=== PATIENT | male | born 1945 | race Caucasian/White ===

== ENCOUNTER 2025-02-28 07:45 | Inpatient (IN) | payer MEDICARE, BC ==
[~2025-02-28] VITALS: Ht 177.8 cm; Wt 74.4 kg
[2025-02-28 09:32] LABS: INR 1.04 (0.91-1.10)
[2025-02-28] MEDS ORDERED: LIDOCAINE 2%-EPI 1:100,000 30 ML VIAL ONE (11:51)
[2025-02-28] MEDS ORDERED: OXYMETAZOLINE HCL NASAL SPRAY 30 ML BOTTLE NS ONE (11:52)
[2025-02-28] MEDS ORDERED: VANCOMYCIN 1 GM VIAL ONE (11:52)
[2025-02-28] MEDS ORDERED: dexaMETHasone SOD PHOSPHATE 2 ML ONE (11:52)
[2025-02-28] MEDS ORDERED: ONDANSETRON HCL/PF - ER 4 MG/2 ML VIAL IVP PRN (14:30)
[2025-02-28] MEDS ORDERED: ACETAMINOPHEN 325 MG TABLET PO PRN ×2 (14:30→15:00)
[2025-02-28] MEDS ORDERED: Z GUARD REMEDY 4 OZ OINT TP PRN (15:00)
[2025-02-28] MEDS ORDERED: ZOLPIDEM TARTRATE 5 MG TABLET PO PRN (15:00)
[2025-02-28] MEDS ORDERED: MAGNESIUM HYDROXIDE 30 ML UDC PO PRN (15:00)
[2025-02-28] MEDS ORDERED: ONDANSETRON HCL/PF 4 MG/2 ML VIAL IVP PRN ×2 (15:00)
[2025-02-28] MEDS ORDERED: MAG HYDROX/AL HYDROX/SIMETH 30 ML UDC PO PRN (15:00)
[2025-02-28 17:41] LABS: APPEARANCE,URINE CLEAR (CLEAR); BILIRUBIN,URINE NEGATIVE (NEGATIVE); BLOOD, URINE TRACE-INTA Ery/uL (NEGATIVE); COLOR,URINE YELLOW (YELLOW); KETONES,URINE NEGATIVE (NEGATIVE); LEUKOCYTE ESTERASE ,URINE 1+ (NEGATIVE); NITRITE, URINE POSITIVE (NEGATIVE); PROTEIN,URINE TRACE mg/dl (NEGATIVE); UGLUCOSE NEGATIVE (NEGATIVE)
[2025-02-28 18:04] LABS: ADD URINE CULTURE YES; BACTERIA,URINE 2+ /HPF (None Seen); RBC,URINE 0-2 /HPF (0-2); WBC,URINE 21-50 /HPF (0-3)
[2025-02-28 18:05] LABS: MUCUS,URINE Few /LPF (None Seen); SQUAMOUS EPITHELIAL CELL,UR 0-2 /HPF (None Seen)
[2025-02-28] MEDS ORDERED: ALLO300T2 PO (18:27)
[2025-02-28] MEDS ORDERED: TEMA30CA PO (18:27)
[2025-02-28] MEDS ORDERED: PANT40TA49 PO (18:27)
[2025-02-28] MEDS ORDERED: DUTA0.5C37 PO (18:27)
[2025-02-28] MEDS ORDERED: TADA5TAB13 PO (18:27)
[2025-02-28] MEDS ORDERED: ATOR80TA PO (18:27)
[2025-02-28] MEDS ORDERED: AMLO-212 PO (18:27)
[2025-02-28] MEDS ORDERED: SILO8CAP6 PO (18:27)
[2025-02-28] MEDS: HYDROMORPHONE 1 MG/1 ML DISP.SYRIN IV PRN (19:44)
[2025-02-28 20:34] VITALS: BP 128/66; TEMP 99.5; O2SAT 94
[2025-02-28] MEDS: IV NS 0.9% 1,000 ML IV PRN (22:33)
[2025-02-28] MEDS: VANCOMYCIN 1 GM in IV D5W 250ml IV SCH (23:47)
[2025-03-01 06:48] LABS: BASOPHILS % (AUTO) 0.1 % (0.0-2.0); HEMATOCRIT 39 % (39-51); HEMOGLOBIN 12.9 g/dL (13.5-17.5); LYMPHOCYTES # (AUTO) 0.7 K/uL (0.8-4.8); LYMPHOCYTES % (AUTO) 6.1 % (20.0-44.0); MEAN CORPUSCULAR HEMOGLOBIN 30 PG (26.0-33.0); MEAN CORPUSCULAR HGB CONC 34 g/dl (31.0-36.0); MEAN CORPUSCULAR VOLUME 88 fL (80-96); MONOCYTES # (AUTO) 0.4 K/uL (0.1-1.30); MONOCYTES % (AUTO) 3.1 % (2.0-12.0); NEUTROPHILS # (AUTO) 10.3 K/uL (1.8-8.9); NEUTROPHILS % (AUTO) 90.7 % (43.0-81.0); PLATELET COUNT (AUTO) 281 K/uL (150-450); RED BLOOD CELL COUNT(AUTO) 4.39 MIL/uL (4.5-6.0); RED CELL DISTRIBUTION WIDTH 14.5 % (11.5-15.0); WHITE BLOOD COUNT (AUTO) 11.4 K/uL (4.3-11.0)
[2025-03-01 07:00] VITALS: BP 111/64; TEMP 97.3; O2SAT 95
[2025-03-01 07:37] LABS: CALCIUM, SERUM 8.4 mg/dL (8.5-10.1); CARBON DIOXIDE 22 mmol/L (21-32); CHLORIDE 104 mmol/L (98-107); CREATININE 1.1 mg/dL (0.6-1.3); GLUCOSE 210 mg/dL (74-106); MAGNESIUM 1.8 mg/dL (1.8-2.4); PHOSPHORUS 1.8 mg/dL (2.5-4.9); POTASSIUM 3.7 mmol/L (3.5-5.1); SODIUM SERUM 137 mmol/L (136-145); UREA NITROGEN, BLOOD 24 mg/dL (7-18)
[2025-03-01] MEDS: PHENAZOPYRIDINE HCL 200 MG TABLET PO PRN (07:48)
[2025-03-01] MEDS: CEPHALEXIN MONOHYDRATE 250 MG CAPSULE PO SCH (07:48)
[2025-03-01] MEDS ORDERED: SULFAMETH/TRIMETH 800/160 MG 1 UDTAB TABLET PO SCH (09:00)
[2025-03-01] MEDS ORDERED: CIPR500S2 PO (10:23)
[2025-03-01] MEDS ORDERED: PHEN-895 PO (10:23)
== END 2025-03-01 18:24 | disposition home or self-care (01) | DRG 496 ==
LOC: DS 07:45 → MED 13:03
PROVIDERS: ADMIT Student in an Organized Health Care Education/Training Program; ATTEND Student in an Organized Health Care Education/Training Program
PROC: 0NST04Z Reposition Right Mandible with Internal Fixation Device, Open Approach (ICD-10-PCS; 2025-02-28)
PROC: 0N5V0ZZ Destruction of Left Mandible, Open Approach (ICD-10-PCS; 2025-02-28)
PROC: 0N5T0ZZ Destruction of Right Mandible, Open Approach (ICD-10-PCS; 2025-02-28)
PROC: 0NUV07Z Supplement Left Mandible with Autologous Tissue Substitute, Open Approach (ICD-10-PCS; 2025-02-28)
PROC: 0NUT07Z Supplement Right Mandible with Autologous Tissue Substitute, Open Approach (ICD-10-PCS; 2025-02-28)
PROC: 0NSV04Z Reposition Left Mandible with Internal Fixation Device, Open Approach (ICD-10-PCS; principal; 2025-02-28 13:00)
DX: S02.69XK Fracture of mandible of other specified site, subsequent encounter for fracture with nonunion (principal); N39.0 Urinary tract infection, site not specified; X58.XXXD Exposure to other specified factors, subsequent encounter; M27.2 Inflammatory conditions of jaws; E78.5 Hyperlipidemia, unspecified; I10 Essential (primary) hypertension; Z88.2 Allergy status to sulfonamides; B96.89 Other specified bacterial agents as the cause of diseases classified elsewhere; D16.4 Benign neoplasm of bones of skull and face; M27.49 Other cysts of jaw; N40.1 Benign prostatic hyperplasia with lower urinary tract symptoms
CPT/HCPCS: 36415; 80048-TC; 81001; 83735-TC; 84100-TC; 85025-TC; 85610-TC; 85730-TC; 87086-TC; A4338; C1713; G0378; J0690; J1100; J1171; J2405; J2704; J3370; J3490; J7030; J7060